=== PATIENT | female | born 1975 | race Two or more races ===

== ENCOUNTER → 2016-05-08 | Outpatient (CLI) | payer OTHER ==
[~2016-05-08] MED LIST: DIOVAN320 MG PO; HYDROCODON-ACE1 EAC5 PO; KLONOPIN; NEURONTIN800 MG PO; PHENTERMINE H37.5 M1 PO; POTASSIUM CHLO10 MEQ PO; TOPAMAX
--- NOTE | ~2016-05-08 | CR97 ---
[facility] A Service of [facility] RADIOLOGY TEXT RESULTS PATIENT: BONILLA ROSENBAUM LOCATION: [facility] : 73 UNIT #: [id number] AGE: [address]: Tushar Dupree MD SEX: F ORDER DR: [id number] [facility] [address] [place], [place] [address] [id number] O MR#: [id number] Acc #: [id number] NAME: BONILLA ROSENBAUM : 1975 SEX: F STUDY DATE/TIME: 05/08/2016 8:24 UNIT: [facility] ROOM: STUDY DESCRIPTION: CR Esophagram Attending Physician: Tushar Dupree M.D. Referring Physician: Tushar Dupree M.D. Ordering Physician: Tushar Dupree M.D. Primary Care Physician: Luke Braun A.P.R.N. MEDICAL IMAGING REPORT This report is preliminary unless electronic signature is present EXAM Contrast barium esophagram. INDICATION This is a preoperative examination prior collection of the gastric band surgery. TECHNIQUE Patient was administered thin barium and fluoroscopic images were obtained. FINDINGS Patient's thoracic esophagus is of normal caliber. There is no evidence of stricture or mass lesion. Esophageal motility appeared to be within normal limits. No hiatal hernia was identified. There was no reflux. Total fluoroscopy time was 0.4 minutes and a total of 8 fluoroscopic images were obtained. IMPRESSION Normal single contrast barium esophagram. Dictated by... Brigitte Bearden M.D. THIS IS AN ELECTRONICALLY VERIFIED REPORT Brigitte Bearden M.D. at 05/11/2016 4:45 PM AFF/gz TD: 05/11/2016 11:02 JOB #: [id number] MEDICAL IMAGING REPORT Page 1 of 1 COPY
--- NOTE | ~2016-05-08 | CR63 ---
[facility] A Service of [facility] RADIOLOGY TEXT RESULTS PATIENT: BONILLA ROSENBAUM LOCATION: [facility] : 73 UNIT #: [id number] AGE: [address]: Tushar Dupree MD SEX: F ORDER DR: [id number] [facility] [address] [place], [place] [address] [id number] O MR#: [id number] Acc #: [id number] NAME: BONILLA ROSENBAUM : 1975 SEX: F STUDY DATE/TIME: 05/08/2016 7:43 UNIT: [facility] ROOM: STUDY DESCRIPTION: CR Chest 2 View Attending Physician: Tushar Dupree M.D. Referring Physician: Tushar Dupree M.D. Ordering Physician: Tushar Dupree M.D. Primary Care Physician: Luke Braun A.P.R.N. MEDICAL IMAGING REPORT This report is preliminary unless electronic signature is present EXAM Chest 05/08/2016 HISTORY 40-year-old woman preop clearance for laparoscopic adjustable gastric band placement and possible paraesophageal hernia repair, short of air with activity. COMPARISON Chest 10/03/2014. FINDINGS 2 view chest demonstrates globular cardiomegaly. Hilar structures are preserved. Mild mediastinal widening reflects mild aortic prominence. Lungs are fully expanded and clear. Costophrenic angles are preserved. Large body habitus noted. IMPRESSION Cardiomegaly. Large body habitus. No acute chest finding. Dictated by... Jeet Ramirez M.D. THIS IS AN ELECTRONICALLY VERIFIED REPORT Jeet Ramirez M.D. at 05/08/2016 11:33 AM ORIN/malvin TD: 05/08/2016 09:41 JOB #: [id number] [facility] A Service of [facility] RADIOLOGY TEXT RESULTS PATIENT: BONILLA ROSENBAUM LOCATION: [facility] : 73 UNIT #: [id number] AGE: [address]: Tushar Dupree MD SEX: F ORDER DR: MEDICAL IMAGING REPORT Page 1 of 1 COPY
--- NOTE | ~2016-05-08 | EKG ---
PATIENT: BONILLA ROSENBAUM UNIT #: [id number] Ventricular Rate: 94 BPM Atrial Rate: 94 BPM P-R Interval: 154 ms QRS Duration: 78 ms Q-T Interval: 390 ms QTC Calculation(Bezet): 487 ms P Rome: 50 degrees Calculated R Rome: 80 degrees Calculated T Rome: 36 degrees Diagnosis Line: Normal sinus rhythm Diagnosis Line: Prolonged QT Diagnosis Line: Abnormal ECG Diagnosis Line: When compared with ECG of 03-OCT-2014 15:14, Diagnosis Line: QT has lengthened Diagnosis Line: Confirmed by REN BAE MD ([id number]) on 05/11/2016 Diagnosis Line: 10:44:36 PM INTERPRETING MD: KATHIA VILLELA
[2016-05-08 09:48] LABS: HEMATOCRIT 30.7 % (35.0-45.0); HEMOGLOBIN 9.7 gm/dL (12.0-16.0); MEAN CELL VOLUME 73.3 FL (83-96); MEAN CORPUSCULAR HEMOGLOBIN 23.2 PG (28-34); MEAN CORPUSCULAR HGB CONC 31.6 g/dL (30-36); RED BLOOD COUNT 4.19 X10e (3.90-5.30); RED CELL DISTRIBUTION WIDTH 19.5 % (11.0-15.5); WHITE BLOOD COUNT 11.5 X10e3 (4.0-10.5)
[2016-05-08 11:18] LABS: ALBUMIN SERUM 3.8 g/dL (3.5-5.0); BILIRUBIN,TOTAL 0.6 mg/dL (0.2-2.0); CALCIUM SERUM 8.6 mg/dL (8.4-10.2); CREATININE SERUM 0.5 mg/dL (0.6-1.4); GLOM FILT RATE Estimated 120.2 mL/min (>60); POTASSIUM 3.8 mmol/L (3.5-5.1); PROTEIN TOTAL SERUM 7.3 g/dL (6.0-8.3)
== END | disposition home or self-care (01) ==
LOC: CRAD 06:08
PROVIDERS: Surgery
DX: Z01.818 Encounter for other preprocedural examination (principal); I51.7 Cardiomegaly
CPT/HCPCS: 36415; 71020; 74220; 80053; 80061; 84443; 85027; 93005

== ENCOUNTER → 2016-05-20 | Day surgery (SDC) | payer OTHER ==
--- NOTE | ~2016-05-20 | OR ---
Unit #: [id number] #: [id number] Patient: BONILLA ROSENBAUM [id number] [address] [address] [id number] O MR#: [id number] NAME: BONILLA ROSENBAUM ROOM: Date of Procedure: 05/20/2016 Admission Date: 05/20/2016 Surgeon: Tushar Dupree M.D. : 1975 Attending Physician: Tushar Dupree M.D. Primary Care Physician: Luke Braun A.P.R.N. OPERATIVE REPORT PREOPERATIVE DIAGNOSIS Chronic morbid obesity, body mass index of 39. POSTOPERATIVE DIAGNOSES 1. Chronic morbid obesity, body mass index of 39. 2. Paraesophageal hiatal hernia. PROCEDURES PERFORMED 1. Laparoscopic adjustable gastric band. 2. Laparoscopic paraesophageal hiatal hernia repair. [employer] Jose. ANESTHESIA General endotracheal anesthesia. ESTIMATED BLOOD LOSS Minimal. IV FLUIDS 800 crystalloid. COMPLICATIONS None. INDICATIONS FOR PROCEDURE The patient is a 40-year-old with chronic morbid obesity. DESCRIPTION OF PROCEDURE The patient was taken to the operating room and placed in supine position. General anesthesia was induced. The abdomen was prepped and draped. A 3-cm incision was then made left of the midline. A 10-mm Visiport was then placed intraabdominal under direct vision. The abdomen was insufflated to 15 mmHg with CO2. The patient was then placed in a steep reversed Trendelenburg. General inspection of the abdomen revealed what appeared to be a paraesophageal hernia. This was identified with a defect at the diaphragm using anterior palpation with the instrument. We then made a small incision in the subxiphoid region. A Stefani liver retractor was then placed intraabdominal and used to retract the left lobe of the liver upward to further expose the paraesophageal hernia and GE junction. I then placed a 5-mm port in the right upper quadrant, a 10-mm Unit #: [id number] #: [id number] Patient: BONILLA ROSENBAUM port in the left upper quadrant, and another 5-mm port in the left lower quadrant. The stomach was retracted medial and downward. Upon retracting the stomach, we took down the paraesophageal ligament, exposing the right and left dena at the paraesophageal hernia. Any hernia sac was reduced. We then repaired the paraesophageal hernia using interrupted #0 Ethibond sutures in a [id number]-bg-chybv type fashion. This formed a snug repair to the anterior esophagus. We then retracted the stomach medially and further exposed the angle of His using Bovie electrocautery. The stomach was then retracted laterally. We then took down the hepatogastric ligament with Bovie electrocautery. This exposed the right dena. Using blunt dissection, I created a retrogastric tunnel from this point to the angle of His. The band was then placed intraabdominal through the 10-mm port site. This was then brought through the retrogastric tunnel in a pars flaccida technique. The band was then closed anteriorly to form a 20-mL to 25-mL anterior gastric pouch. The fundus was then secured to the anterior pouch to prevent movement around the stomach using two interrupted #0 Ethibond sutures. A third suture was then used as a gathering stitch from the lesser curve to the anterior stomach, gathering and imbricating the remaining fundus of the stomach. The tubing was then brought out through the midline 10-mm port site. All ports and the Stefani liver retractor were removed under direct vision with no evidence of abdominal hemorrhage. A polypropylene mesh was then secured to the posterior face of the laparoscopic band port. This was secured using #0 Ethibond suture. This was then cut to shape. The port was then connected to the tubing and placed into a subcutaneous pocket just anterior to the rectus sheath. Its position was then confirmed. All tubing was then placed intraabdominal. The wounds were then closed with interrupted 4-0 Vicryl. The patient tolerated the procedure well and was sent to the recovery room in good condition. Dictated by... Cas Lauren/horace TD: 05/20/2016 20:47 JOB #: [id number] OPERATIVE REPORT Page 1 of 1 X Tushar Dupree MD PROCEDURE OPERATIVE NOTE
--- NOTE | ~2016-05-20 | CR7 ---
[facility] A Service of [facility] RADIOLOGY TEXT RESULTS PATIENT: BONILLA ROSENBAUM LOCATION: [facility] : 73 UNIT #: [id number] AGE: [address]: Tushar Dupree MD SEX: F ORDER DR: [id number] [facility] [address] [place], [place] [address] [id number] O MR#: [id number] Acc #: [id number] NAME: BONILLA ROSENBAUM : 1975 SEX: F STUDY DATE/TIME: 05/20/2016 8:36 UNIT: [facility] ROOM: STUDY DESCRIPTION: CR Abdomen Single AP View Attending Physician: Tushar Dupree M.D. Ordering Physician: Tushar Dupree M.D. Primary Care Physician: Luke Braun A.P.R.N. MEDICAL IMAGING REPORT This report is preliminary unless electronic signature is present EXAM AP supine radiograph of the abdomen, 05/20/2016 HISTORY Postop lap band PACU FINDINGS A supine radiograph of the abdomen is presented. Patient is status post placement of lap band device. The band component is located at the anticipated location of gastroesophageal junction based on esophagram dated 05/08/2016. The band component is approximately 73 degrees from the vertical. The catheter component intact in visualized extent. Port component not included on field of view. It appears to be implanted over the left paracentral low abdomen. There is mild gaseous distension of stomach. Remainder of visualized bowel gas pattern unremarkable. Mild cardiac enlargement. Lung volumes low with central bronchovascular crowding. Mildly prominent interstitial and peribronchial markings with some patchy densities bilateral lung bases. Some of the appearance may be a reflection of atelectasis secondary to low lung volumes. Please correlate with any clinical concern for pulmonary edema localized to the interstitium. No pleural effusion or pneumothorax suggested. Calcifications superimposed over the right hemiabdomen of unclear exact etiology and location. Could be within the fecal stream. Dictated by... Tushar Ledezma M.D. THIS IS AN ELECTRONICALLY VERIFIED REPORT Tushar Ledezma M.D. at 05/21/2016 5:36 PM JSK/debbie STS. [facility] A Service of [facility] RADIOLOGY TEXT RESULTS PATIENT: BONILLA ROSENBAUM LOCATION: [facility] : 73 UNIT #: [id number] AGE: [address]: Tushar Dupree MD SEX: F ORDER DR: TD: 05/20/2016 10:16 JOB #: [id number] MEDICAL IMAGING REPORT Page 1 of 1 COPY
== END | disposition home or self-care (01) ==
LOC: CSUR 05:56
DX: E66.01 Morbid (severe) obesity due to excess calories (principal); K44.9 Diaphragmatic hernia without obstruction or gangrene; Z68.39 Body mass index [BMI] 39.0-39.9, adult; Z88.6 Allergy status to analgesic agent; Z79.891 Long term (current) use of opiate analgesic; Z79.899 Other long term (current) drug therapy; Z98.51 Tubal ligation status; Z98.890 Other specified postprocedural states
CPT/HCPCS: 74000; 84703; C1781; J0330; J0690; J1100; J1650; J1885; J2250; J2405; J2710; J3010